=== PATIENT | female | born 1965 | race Caucasian/White ===

== ENCOUNTER → 2016-05-29 | Outpatient (CLI) | payer BC ==
[~2016-05-29] MED LIST: HYDROCHLOROTH12.5 M1 PO; LEVOTHYROXINE0.1 M1 PO; PAXIL10 MG PO; PREDNISONE 20MG20 MG PO; RANITIDINE 150150 MG PO; TYLENOL WITH CO1 TA1 PO
--- NOTE | 2016-06-02 13:11 | RADIOLOGY REPORT PS360 ---
DIG MAMM-SCREEN CORY W/CAD CAD Screening ORDERING PHYSICIAN : Chavez Slater MD PATIENT AGE: 50 years GENDER: Female COMPARISON: Previous mammograms: April 20152013, July 1999 09 July 2011 INDICATION: Routine screening exogenous hormone. No previous procedures no new complaints. Family history. Maternal grandmother with breast cancer postmenopausal TECHNIQUE: Standard CC and MLO images were obtained. R2 CAD reviewed. FINDINGS: Moderately dense breast tissue diffusely throughout both breast reflects pronounced exogenous hormone effect which was not present on older studies from 2011, 2012. It appears hormones affect has been present since 2013. This increased density throughout decreases the sensitivity of mammography but we see no dominant mass nor suspicious calcifications.. Would suggest emphasizing self breast examination in order to compliment mammography in this setting RIGHT BREAST: Similar appearance to last year exam. LEFT BREAST: Also with similar appearance with no significant new findings. IMPRESSION: We again see exogenous hormone effect bilaterally accentuating fibroglandular elements bilaterally. This diffusely increases the density breast & and decreases sensitivity of mammography However we see no significant new areas of concern. Follow-up in one year emphasized recommended. Self breast examination should be emphasized recommended. BI-RADS CATEGORY: 2_Benign RECOMMENDED FOLLOWUP: 12M 12 MONTH FOLLOW-UP (A letter has been sent to the patient regarding results of the study.)
== END ==
LOC: RAD 16:45
DX: Z12.31 Encounter for screening mammogram for malignant neoplasm of breast (principal); N95.1 Menopausal and female climacteric states
CPT/HCPCS: G0202

== ENCOUNTER 2017-01-21 06:48 | Day surgery (SDC) | payer BC ==
--- NOTE | 2017-01-21 08:30 | Operative Note ---
Colonoscopy ([facility]) Procedure date: 01/21/17 Date of : 63 Procedure:Colonoscopy Colonoscopy with cold snare polypectomy and cold biopsies Indications: Mrs. Hurtado is a 51-year-old female who is here for initial screening colonoscopy. She reports postprandial diarrhea since her cholecystectomy in September 2015. She had a nonfunctioning gallbladder. The patient reports no abdominal pain, weight loss or rectal bleeding. She does state that her paternal grandmother had colon cancer. Performing Provider: Mehnaz Macias MD Referrring Provider: Shahid Lew M.D. Sedation: Fentanyl 150 mg IV/Versed 7 mg IV Procedure: Prior to the procedure, a history and physical exam was performed, and patient medications and allergies were reviewed. The risks and benefits of the procedure and the sedation options and risks were discussed with the patient. All questions were answered and informed consent was obtained. Patient identification and proposed procedure were verified by the physician and the nurse. The patient was placed in a left lateral decubitus position. Throughout the procedure, the patient's blood pressure, pulse, and oxygen saturations were monitored continuously. Findings: On digital rectal examination there was normal rectal tone. There were no external hemorrhoids. The colonoscope was introduced through the anal canal to the rectum and advanced to the cecum. The ileocecal valve and appendiceal orifice were identified. The scope was advanced a short distance into the ileum which appeared grossly normal. The scope was then withdrawn into the colon. The cecum, ascending and transverse colon and mucosa were grossly normal. There was an 8 mm transverse colon polyp removed via cold snare polypectomy. Cold biopsies were taken from the RIGHT and mid colon to rule out microscopic colitis. There were very mildly scattered diverticuli in the distal descending and sigmoid colon (LEFT colon). The rectum itself was normal. Upon retroflexion within the rectum there were small grade 1 internal hemorrhoids. Impressions: 1. Transverse colon polyp 2. Mild left-sided diverticulosis 3. Small grade 1 internal hemorrhoids Recommendations: I will follow up the polyp pathology and recommend repeat colonoscopy again in 5 years based upon the polyp histology. I do suspect that this is an adenomatous polyp. I will follow up the random colon biopsies. I will likely place her on a bowel acid binding agent (Colestid or WelChol). I do believe that she is having cholorrheic diarrhea. Complications: None EBL (ml): 0 at 0830
[2017-01-21 15:05] VITALS: BP 113/58
== END 2017-01-21 09:35 | disposition home or self-care (01) ==
LOC: SDC 06:48
PROVIDERS: Internal Medicine Gastroenterology
PROC: 0DBL8ZX Excision of Transverse Colon, Via Natural or Artificial Opening Endoscopic, Diagnostic (ICD-10-PCS; principal; 2017-01-21 08:00)
DX: K63.5 Polyp of colon (principal); K57.30 Diverticulosis of large intestine without perforation or abscess without bleeding; K64.0 First degree hemorrhoids